=== PATIENT | male | born 1940 | race Caucasian/White ===

== ENCOUNTER 2018-10-02 13:01 | Observation (INO) ==
[2018-10-02] MEDS ORDERED: DOCUSATE SODIUM 100 MG CAPSULE PO PRN (15:17)
[2018-10-02] MEDS ORDERED: ZALEPLON 5 MG CAPSULE PO PRN (15:17)
[2018-10-02] MEDS ORDERED: MAGNESIUM SULF RIDER 4 GM in PREMIX 1 EACH IV PRN (15:17)
[2018-10-02] MEDS ORDERED: MAGNESIUM SULF RIDER 2 GM in PREMIX 1 EACH IV PRN (15:17)
[2018-10-02] MEDS ORDERED: ACETAMINOPHEN 325 MG TABLET PO PRN (15:17)
[2018-10-02] MEDS ORDERED: ONDANSETRON 4 MG/2 ML VIAL IV PRN (15:17)
[2018-10-02] MEDS ORDERED: ENOXAPARIN 40 MG/0.4 ML SYRINGE SUBCUT SCH (15:30)
[2018-10-02 16:25] LABS: Troponin I 0.147 NG/ML (0.00-0.045)
[2018-10-02] MEDS ORDERED: NITROGLYCERIN SL 0.4 MG TABLET SL PRN (16:56)
[2018-10-02] MEDS ORDERED: CLOPIDOGREL 300 MG TABLET PO ONE (16:56)
[2018-10-02] MEDS ORDERED: FUROSEMIDE 20 MG TABLET PO ONE (16:58)
[2018-10-02] MEDS: CARVEDILOL 3.125 MG TABLET PO SCH (20:51)
[2018-10-02] MEDS: rOPINIRole 0.25 MG TABLET PO SCH (20:51)
[2018-10-02] MEDS: AMITRIPTYLINE 10 MG TABLET PO SCH (20:51)
[2018-10-02] MEDS ORDERED: [UNRECOGNIZED DRUG - MIXTURE] PO SCH (21:00)
[2018-10-02] MEDS ORDERED: ATORVASTATIN 40 MG TABLET PO SCH (21:00)
[2018-10-03 03:06] LABS: Basophils % 0.4 % (0.0-0.8); Eosinophils # 0.3 10*3/uL (0.0-0.87); Eosinophils % 3.5 % (0.00-10.9); Hematocrit 42.3 VOL% (42.0-52.0); Hemoglobin 14.5 GM/DL (14.0-18.0); Immature Granulocytes % 0.4 %; Immature Granulocytes Absolute 0.03 #; Lymphocytes # 2.1 10*3/uL (1.4-4.0); Lymphocytes % 30.1 % (21.2-54.2); Mean Corpuscular HGB Conc 34.3 GM/DL (32-36); Mean Corpuscular Hemoglobin 31 PG (27-34); Mean Corpuscular Volume 89.1 FL (87-102); Mean Platelet Volume 9.6 FL (9.6-12.0); Monocytes # 0.8 10*3/uL (0.11-0.8); Neutrophils # 3.9 10*3/uL (1.4-7.4); Neutrophils % 54.6 % (38.7-73.9); Platelet Count 161 T/CUMM (130-400); Red Blood Count 4.75 MC/CUMM (3.8-5.5); Red Cell Distribution Width 12.5 % (9.3-17.3); White Blood Count 7.1 T/CUMM (4-12)
[2018-10-03 03:24] LABS: Calcium 8.9 MG/DL (8.5-10.1); Osmolality,Calculated 278.5 MOS/KG (273-304); Potassium 4.3 MMOL/L (3.5-5.1)
[2018-10-03] MEDS: rOPINIRole 0.25 MG TABLET PO SCH (08:24)
[2018-10-03] MEDS: AMITRIPTYLINE 10 MG TABLET PO SCH (08:24)
[2018-10-03] MEDS: CARVEDILOL 3.125 MG TABLET PO SCH (08:24)
[2018-10-03] MEDS ORDERED: ASPIRIN EC 81 MG TABLET PO SCH (09:00)
[2018-10-03] MEDS ORDERED: CLOPIDOGREL 75 MG TABLET PO SCH (09:00)
[2018-10-03] MEDS ORDERED: MULTIVITAMIN (CENTRUM) TABLET PO SCH (09:00)
[2018-10-03] MEDS ORDERED: CALCIUM (CARBONATE)/VITAMIN D 600 MG-400 UNIT TABLET PO SCH (09:00)
[2018-10-03] MEDS ORDERED: PANTOPRAZOLE 40 MG TABLET PO SCH (09:00)
[2018-10-03] MEDS ORDERED: GLUCOSAMINE 500 MG TABLET PO SCH (09:00)
[2018-10-03 11:53] VITALS: BP 120/67
== END 2018-10-03 14:11 | disposition home or self-care (01) ==
LOC: N.TELEN
PROVIDERS: ADMIT Internal Medicine Clinical Cardiac Electrophysiology; ATTEND Internal Medicine Clinical Cardiac Electrophysiology

== ENCOUNTER 2020-11-07 12:23 | Inpatient (IN) ==
[2020-11-07] MEDS ORDERED: HEPARIN 5,000 UNIT/1 ML VIAL IV STA (12:41)
[2020-11-07] MEDS ORDERED: HEPARIN 5,000 UNIT/1 ML VIAL ONE (12:41)
[2020-11-07] MEDS ORDERED: ASPIRIN 325 MG TABLET PO STA (12:43)
[2020-11-07] MEDS ORDERED: HEPARIN/NACL 0.9% 2 UNITS/ML 1,000 ML IV ONE (12:43)
[2020-11-07] MEDS ORDERED: LIDOCAINE 1% 20 ML VIAL ONE (12:43)
[2020-11-07 12:58] LABS: Basophils % 0.4 % (0.0-0.8); Eosinophils # 0.2 10*3/uL (0.0-0.87); Eosinophils % 1.8 % (0.00-10.9); Hematocrit 40.6 VOL% (42.0-52.0); Hemoglobin 14.1 GM/DL (14.0-18.0); Immature Granulocytes % 0.5 %; Immature Granulocytes Absolute 0.05 #; Lymphocytes # 1.3 10*3/uL (1.4-4.0); Lymphocytes % 12.7 % (21.2-54.2); Mean Corpuscular HGB Conc 34.7 GM/DL (32-36); Mean Corpuscular Volume 90.2 FL (87-102); Mean Platelet Volume 9.2 FL (9.6-12.0); Monocytes % 6.6 % (1.7-12.7); Platelet Count 173 T/CUMM (130-400); Red Cell Distribution Width 12.4 % (9.3-17.3); White Blood Count 10.1 T/CUMM (4-12)
[2020-11-07] MEDS ORDERED: MIDAZOLAM 2 MG/2 ML VIAL ONE (13:00)
[2020-11-07] MEDS ORDERED: MORPHINE 10 MG/1 ML VIAL ONE (13:00)
[2020-11-07] MEDS ORDERED: HYDROmorphone 2 MG/1 ML VIAL ONE (13:00)
[2020-11-07 13:14] LABS: Albumin 3.7 G/DL (3.4-5.0); Bilirubin,Total 0.5 MG/DL (0.2-1.0); Calcium 8.9 MG/DL (8.5-10.1); Total Protein 6.5 G/DL (6.4-8.3)
[2020-11-07] MEDS ORDERED: TIROFIBAN 5,000 MCG/100 ML PREMIX IV ONE ×2 (13:28→14:57)
[2020-11-07] MEDS ORDERED: ENOXAPARIN 60 MG/0.6 ML SYRINGE ONE (13:29)
[2020-11-07] MEDS ORDERED: hydrALAZINE 20 MG/1 ML VIAL IV PRN (13:38)
[2020-11-07] MEDS ORDERED: ONDANSETRON 4 MG/2 ML VIAL IV PRN (13:38)
[2020-11-07] MEDS ORDERED: MAGNESIUM SULF RIDER 2 GM in PREMIX 1 EACH IV PRN (13:38)
[2020-11-07] MEDS ORDERED: ACETAMINOPHEN 325 MG TABLET PO PRN (13:38)
[2020-11-07] MEDS ORDERED: POTASSIUM CHLORIDE 20 MEQ TABLET PO PRN (13:38)
[2020-11-07] MEDS ORDERED: ZALEPLON 5 MG CAPSULE PO PRN (13:38)
[2020-11-07] MEDS ORDERED: DOCUSATE SODIUM 100 MG CAPSULE PO PRN (13:38)
[2020-11-07] MEDS ORDERED: MAGNESIUM SULF RIDER 4 GM in PREMIX 1 EACH IV PRN (13:38)
[2020-11-07] MEDS ORDERED: HEPARIN/NACL 0.9% 2 UNITS/ML 500 ML IV ONE (13:39)
[2020-11-07] MEDS ORDERED: diphenhydrAMINE 50 MG/1 ML VIAL ONE (14:00)
[2020-11-07] MEDS ORDERED: TICAGRELOR 90 MG TABLET ONE (14:39)
[2020-11-07] MEDS ORDERED: SODIUM CHLORIDE 0.9% 1,000 ML IV SCH (15:00)
[2020-11-07] MEDS: TIROFIBAN 5,000 MCG/100 ML PREMIX IV SCH (15:08)
[2020-11-07 15:52] LABS: Troponin I 0.131 NG/ML (0.00-0.045)
[2020-11-07 17:24] LABS: CKMB % 12.3 %
[2020-11-07 17:29] LABS: Troponin I 30.3 NG/ML (0.00-0.045)
[2020-11-07] MEDS: carvediloL 3.125 MG TABLET PO SCH (20:29)
[2020-11-07] MEDS: rOPINIRole 1 MG TABLET PO SCH (20:29)
[2020-11-07] MEDS: TICAGRELOR 90 MG TABLET PO SCH (20:29)
[2020-11-07 20:35] LABS: CKMB % 14.4 %
[2020-11-07 20:40] LABS: Troponin I 80.3 NG/ML (0.00-0.045)
[2020-11-07 21:31] LABS: Calcium 8.4 MG/DL (8.5-10.1); Osmolality,Calculated 274.8 MOS/KG (273-304)
[2020-11-07] MEDS: MORPHINE 4 MG/1 ML VIAL IV PRN (22:15)
[2020-11-07] MEDS ORDERED: FUROSEMIDE 40 MG/4 ML VIAL IV ONE (23:12)
[2020-11-08] MEDS: TIROFIBAN 5,000 MCG/100 ML PREMIX IV SCH (00:04)
[2020-11-08] MEDS: ALUMINUM/MAGNES/SIMETH MAX STR 30 ML UDCUP PO PRN ×3 (04:37→13:41)
[2020-11-08 04:52] LABS: Basophils % 0.4 % (0.0-0.8); Eosinophils # 0.1 10*3/uL (0.0-0.87); Hematocrit 42.8 VOL% (42.0-52.0); Hemoglobin 14.7 GM/DL (14.0-18.0); Immature Granulocytes % 0.5 %; Immature Granulocytes Absolute 0.05 #; Lymphocytes # 1.2 10*3/uL (1.4-4.0); Lymphocytes % 12.6 % (21.2-54.2); Mean Corpuscular HGB Conc 34.3 GM/DL (32-36); Mean Corpuscular Volume 89.7 FL (87-102); Mean Platelet Volume 9.2 FL (9.6-12.0); Monocytes % 10.1 % (1.7-12.7); Neutrophils % 75.4 % (38.7-73.9); Platelet Count 185 T/CUMM (130-400); Red Blood Count 4.77 MC/CUMM (3.8-5.5); Red Cell Distribution Width 12.3 % (9.3-17.3); White Blood Count 9.2 T/CUMM (4-12)
[2020-11-08 05:30] LABS: Calcium 8.9 MG/DL (8.5-10.1); Osmolality,Calculated 276.7 MOS/KG (273-304)
[2020-11-08 05:31] LABS: Calcium 8.8 MG/DL (8.5-10.1); Osmolality,Calculated 276.7 MOS/KG (273-304)
[2020-11-08 05:33] LABS: Risk Ratio 1.87; VLDL CHOLESTEROL 21.2 MG/DL
[2020-11-08] MEDS: TICAGRELOR 90 MG TABLET PO SCH ×2 (08:09→20:57)
[2020-11-08] MEDS: AMIODARONE 200 MG TABLET PO SCH (08:09)
[2020-11-08] MEDS: ROSUVASTATIN 20 MG TABLET PO SCH (08:09)
[2020-11-08] MEDS: ASPIRIN EC 81 MG TABLET PO SCH (08:09)
[2020-11-08] MEDS: AMITRIPTYLINE 10 MG TABLET PO SCH ×2 (08:09→20:56)
[2020-11-08] MEDS: ATORVASTATIN 40 MG TABLET PO SCH (08:09)
[2020-11-08] MEDS: rOPINIRole 1 MG TABLET PO SCH ×2 (08:10→20:58)
[2020-11-08] MEDS: carvediloL 3.125 MG TABLET PO SCH ×2 (08:13→20:57)
[2020-11-08] MEDS ORDERED: PANTOPRAZOLE 40 MG TABLET PO SCH ×2 (09:00)
[2020-11-08] MEDS: LOSARTAN 25 MG TABLET PO SCH (09:37)
[2020-11-08 13:38] LABS: CKMB % 8.2 %
[2020-11-08] MEDS: CALCIUM (CARBONATE)/VITAMIN D 600 MG-400 UNIT TABLET PO SCH (13:40)
[2020-11-08 13:41] LABS: Troponin I 56.4 NG/ML (0.00-0.045)
[2020-11-08] MEDS: GLUCOSAMINE 500 MG TABLET PO SCH (13:41)
[2020-11-08] MEDS: MULTIVITAMIN (CENTRUM) TABLET PO SCH (13:41)
[2020-11-08] MEDS ORDERED: ALUM/MAG/SIMETH/LIDO VISC 1:1 30 ML BOTTLE PO ONE (13:53)
[2020-11-08] MEDS: NITROGLYCERIN SL 0.4 MG TABLET SL PRN ×2 (13:58→14:03)
[2020-11-08] MEDS ORDERED: LORazepam 2 MG/1 ML VIAL ONE (14:08)
[2020-11-08] MEDS ORDERED: LORazepam 2 MG/1 ML VIAL IV ONE (14:08)
[2020-11-08] MEDS ORDERED: ENOXAPARIN 100 MG/ML SYRINGE SUBCUT ONE (14:19)
[2020-11-08] MEDS: MORPHINE 4 MG/1 ML VIAL IV PRN (14:22)
[2020-11-08] MEDS ORDERED: SODIUM CHLORIDE 0.9% 500 ML IV ONE (14:25)
[2020-11-08] MEDS ORDERED: PHENYLEPHRINE DRIP 40 MG/250 ML PREMIX IV ONE (14:26)
[2020-11-08 15:18] LABS: Bilirubin,Urine Negative (Negative); Blood, Urine Negative (Negative); Glucose,Urine (UA) Negative (Negative); Hyaline Casts,Urine 1 /LPF (0-3); Ketones,Urine Negative (Negative); Nitrite,Urine Negative (Negative); Protein,Urine Negative; RBC,Urine 2 /HPF (0-4); Urine Appearance CLEAR (Clear); Urine Color Yellow (Yellow); Urine Specific Gravity 1.013 (1.001-1.035); Urine Urobilinogen < 2.0 EU/DL (0.2-1.0); WBC,Urine 1 /HPF (0-6)
[2020-11-08] MEDS ORDERED: PHENYLEPHRINE DRIP 40 MG/250 ML PREMIX IV PRN (15:44)
[2020-11-08] MEDS ORDERED: SERTRALINE 25 MG TABLET PO ONE (16:20)
[2020-11-08] MEDS: ALBUTEROL/IPRATROPIUM 3 ML NEB RESP TX SCH ×3 (16:20→19:15)
[2020-11-08] MEDS ORDERED: clonazePAM 0.5 MG TABLET PO ONE (16:23)
[2020-11-08] MEDS: clonazePAM 0.5 MG TABLET PO SCH ×2 (17:08→20:57)
[2020-11-08 18:29] LABS: CKMB % 6.9 %
[2020-11-08 18:32] LABS: Troponin I 44.5 NG/ML (0.00-0.045)
[2020-11-08] MEDS: PANTOPRAZOLE 40 MG TABLET PO SCH (20:57)
[2020-11-08] MEDS: SERTRALINE 25 MG TABLET PO SCH (20:57)
[2020-11-08 21:57] LABS: Troponin I 41.5 NG/ML (0.00-0.045)
[2020-11-08] MEDS: ENOXAPARIN 100 MG/ML SYRINGE SUBCUT SCH (23:07)
[2020-11-09 03:26] LABS: Basophils % 0.2 % (0.0-0.8); Eosinophils # 0.1 10*3/uL (0.0-0.87); Hematocrit 40.3 VOL% (42.0-52.0); Hemoglobin 14.1 GM/DL (14.0-18.0); Immature Granulocytes % 0.4 %; Immature Granulocytes Absolute 0.04 #; Lymphocytes # 1.3 10*3/uL (1.4-4.0); Lymphocytes % 12.3 % (21.2-54.2); Mean Corpuscular Volume 89.2 FL (87-102); Mean Platelet Volume 9.5 FL (9.6-12.0); Monocytes % 9.6 % (1.7-12.7); Neutrophils % 76.5 % (38.7-73.9); Platelet Count 155 T/CUMM (130-400); Red Blood Count 4.52 MC/CUMM (3.8-5.5); Red Cell Distribution Width 12.4 % (9.3-17.3); White Blood Count 10.5 T/CUMM (4-12)
[2020-11-09 03:39] LABS: Calcium 8.3 MG/DL (8.5-10.1)
[2020-11-09 03:44] LABS: CKMB % 4.4 %
[2020-11-09 03:45] LABS: Troponin I 35.5 NG/ML (0.00-0.045)
[2020-11-09] MEDS: ALBUTEROL/IPRATROPIUM 3 ML NEB RESP TX SCH ×4 (07:26→18:13)
[2020-11-09] MEDS: ASPIRIN EC 81 MG TABLET PO SCH (08:18)
[2020-11-09] MEDS: AMITRIPTYLINE 10 MG TABLET PO SCH ×2 (08:18→20:56)
[2020-11-09] MEDS: AMIODARONE 200 MG TABLET PO SCH (08:18)
[2020-11-09] MEDS: clonazePAM 0.5 MG TABLET PO SCH ×2 (08:18→20:55)
[2020-11-09] MEDS: ROSUVASTATIN 20 MG TABLET PO SCH (08:18)
[2020-11-09] MEDS: rOPINIRole 1 MG TABLET PO SCH ×2 (08:18→20:55)
[2020-11-09] MEDS: TICAGRELOR 90 MG TABLET PO SCH ×2 (08:18→20:55)
[2020-11-09] MEDS: MULTIVITAMIN (CENTRUM) TABLET PO SCH (08:19)
[2020-11-09] MEDS: ATORVASTATIN 40 MG TABLET PO SCH (08:19)
[2020-11-09] MEDS: GLUCOSAMINE 500 MG TABLET PO SCH (08:19)
[2020-11-09] MEDS: CALCIUM (CARBONATE)/VITAMIN D 600 MG-400 UNIT TABLET PO SCH (08:19)
[2020-11-09] MEDS: carvediloL 3.125 MG TABLET PO SCH ×2 (08:19→20:56)
[2020-11-09] MEDS: LOSARTAN 25 MG TABLET PO SCH (08:19)
[2020-11-09] MEDS: PANTOPRAZOLE 40 MG TABLET PO SCH ×2 (08:19→20:56)
[2020-11-09] MEDS: ENOXAPARIN 100 MG/ML SYRINGE SUBCUT SCH ×2 (08:22→20:56)
[2020-11-09] MEDS: FUROSEMIDE 40 MG/4 ML VIAL IV SCH ×2 (09:31→16:09)
[2020-11-09 09:45] LABS: CKMB % 3.4 %
[2020-11-09 09:47] LABS: Troponin I 22.5 NG/ML (0.00-0.045)
[2020-11-09] MEDS: SERTRALINE 25 MG TABLET PO SCH (20:56)
[2020-11-10 06:05] LABS: Basophils % 0.2 % (0.0-0.8); Eosinophils # 0.1 10*3/uL (0.0-0.87); Hematocrit 40.2 VOL% (42.0-52.0); Hemoglobin 14.3 GM/DL (14.0-18.0); Immature Granulocytes % 0.5 %; Immature Granulocytes Absolute 0.05 #; Lymphocytes # 1.4 10*3/uL (1.4-4.0); Lymphocytes % 13.4 % (21.2-54.2); Mean Corpuscular HGB Conc 35.6 GM/DL (32-36); Mean Corpuscular Volume 88.5 FL (87-102); Mean Platelet Volume 10.2 FL (9.6-12.0); Monocytes % 10.2 % (1.7-12.7); Neutrophils % 74.7 % (38.7-73.9); Platelet Count 169 T/CUMM (130-400); Red Blood Count 4.54 MC/CUMM (3.8-5.5); Red Cell Distribution Width 12.3 % (9.3-17.3); White Blood Count 10.5 T/CUMM (4-12)
[2020-11-10 06:24] LABS: Calcium 8.8 MG/DL (8.5-10.1); Osmolality,Calculated 270.2 MOS/KG (273-304)
[2020-11-10] MEDS: ALBUTEROL/IPRATROPIUM 3 ML NEB RESP TX SCH ×4 (07:27→19:24)
[2020-11-10] MEDS: GLUCOSAMINE 500 MG TABLET PO SCH (10:03)
[2020-11-10] MEDS: ENOXAPARIN 100 MG/ML SYRINGE SUBCUT SCH ×2 (10:03→21:32)
[2020-11-10] MEDS: AMITRIPTYLINE 10 MG TABLET PO SCH ×2 (10:03→21:31)
[2020-11-10] MEDS: FUROSEMIDE 40 MG/4 ML VIAL IV SCH ×2 (10:03→17:24)
[2020-11-10] MEDS: clonazePAM 0.5 MG TABLET PO SCH ×2 (10:04→21:31)
[2020-11-10] MEDS: ROSUVASTATIN 20 MG TABLET PO SCH (10:04)
[2020-11-10] MEDS: LOSARTAN 25 MG TABLET PO SCH (10:04)
[2020-11-10] MEDS: ASPIRIN EC 81 MG TABLET PO SCH (10:04)
[2020-11-10] MEDS: rOPINIRole 1 MG TABLET PO SCH ×2 (10:05→21:32)
[2020-11-10] MEDS: MULTIVITAMIN (CENTRUM) TABLET PO SCH (10:06)
[2020-11-10] MEDS: ATORVASTATIN 40 MG TABLET PO SCH (10:07)
[2020-11-10] MEDS: PANTOPRAZOLE 40 MG TABLET PO SCH ×2 (10:07→21:32)
[2020-11-10] MEDS: TICAGRELOR 90 MG TABLET PO SCH ×2 (10:07→21:31)
[2020-11-10] MEDS: AMIODARONE 200 MG TABLET PO SCH (10:07)
[2020-11-10] MEDS: CALCIUM (CARBONATE)/VITAMIN D 600 MG-400 UNIT TABLET PO SCH (10:07)
[2020-11-10] MEDS: carvediloL 3.125 MG TABLET PO SCH ×2 (10:08→21:32)
[2020-11-10] MEDS: SERTRALINE 25 MG TABLET PO SCH (21:32)
[2020-11-11 06:23] LABS: Basophils % 0.3 % (0.0-0.8); Eosinophils # 0.2 10*3/uL (0.0-0.87); Eosinophils % 2.2 % (0.00-10.9); Hematocrit 36.7 VOL% (42.0-52.0); Immature Granulocytes % 0.4 %; Immature Granulocytes Absolute 0.04 #; Lymphocytes # 1.5 10*3/uL (1.4-4.0); Lymphocytes % 15.8 % (21.2-54.2); Mean Corpuscular HGB Conc 35.4 GM/DL (32-36); Mean Corpuscular Volume 88.2 FL (87-102); Monocytes % 11.2 % (1.7-12.7); Neutrophils % 70.1 % (38.7-73.9); Platelet Count 174 T/CUMM (130-400); Red Blood Count 4.16 MC/CUMM (3.8-5.5); Red Cell Distribution Width 12.3 % (9.3-17.3); White Blood Count 9.6 T/CUMM (4-12)
[2020-11-11 06:44] LABS: Calcium 8.6 MG/DL (8.5-10.1); Osmolality,Calculated 269.4 MOS/KG (273-304)
[2020-11-11] MEDS: ALBUTEROL/IPRATROPIUM 3 ML NEB RESP TX SCH (07:11)
[2020-11-11] MEDS: FUROSEMIDE 40 MG/4 ML VIAL IV SCH (08:29)
[2020-11-11 08:33] VITALS: BP 114/62
[2020-11-11] MEDS ORDERED: FUROSEMIDE 40 MG TABLET PO SCH (09:00)
[2020-11-11] MEDS: ROSUVASTATIN 20 MG TABLET PO SCH (09:48)
[2020-11-11] MEDS: LOSARTAN 25 MG TABLET PO SCH (09:48)
[2020-11-11] MEDS: MULTIVITAMIN (CENTRUM) TABLET PO SCH (09:48)
[2020-11-11] MEDS: GLUCOSAMINE 500 MG TABLET PO SCH (09:48)
[2020-11-11] MEDS: TICAGRELOR 90 MG TABLET PO SCH (09:48)
[2020-11-11] MEDS: clonazePAM 0.5 MG TABLET PO SCH (09:49)
[2020-11-11] MEDS: AMIODARONE 200 MG TABLET PO SCH (09:49)
[2020-11-11] MEDS: ASPIRIN EC 81 MG TABLET PO SCH (09:49)
[2020-11-11] MEDS: ATORVASTATIN 40 MG TABLET PO SCH (09:50)
[2020-11-11] MEDS: PANTOPRAZOLE 40 MG TABLET PO SCH (09:50)
[2020-11-11] MEDS: AMITRIPTYLINE 10 MG TABLET PO SCH (09:50)
[2020-11-11] MEDS: carvediloL 3.125 MG TABLET PO SCH (09:50)
[2020-11-11] MEDS: CALCIUM (CARBONATE)/VITAMIN D 600 MG-400 UNIT TABLET PO SCH (09:50)
[2020-11-11] MEDS: ENOXAPARIN 100 MG/ML SYRINGE SUBCUT SCH (09:50)
[2020-11-11] MEDS: rOPINIRole 1 MG TABLET PO SCH (09:51)
== END 2020-11-11 12:30 | disposition home or self-care (01) | DRG 246 ==
LOC: EDBD → EDUNIT# → N.ED 12:23 → N.ICU 12:53 → N.EDINP 14:33 → N.ICU 15:22 → N.TELEN 11-08 11:09 → N.ICU 11-08 14:26 → N.TELEN 11-09 10:56
PROVIDERS: ADMIT Internal Medicine Cardiovascular Disease; ATTEND Internal Medicine Cardiovascular Disease
PROC: CLCCHCL (ICD-10-PCS; 2020-11-07 13:45)